=== PATIENT | male | born 1950 | race Caucasian/White ===

== ENCOUNTER 2018-04-13 15:34 | Emergency (ER) | payer MEDICARE, MEDICAID ==
[~2018-04-13] VITALS: Ht 167.6 cm; Wt 131.5 kg
[~2018-04-13 15:34] MED LIST: ACET-77 PO; ACHD5005 PO; BUDE10.2 INH; CITA20TA9 PO; CLON0.1T PO; DILT240C PO; FENO145T2 PO; FLUT16SP22 NSEACH; HYDR-3923 PO; LACT20SO2 PO; LOSA100T8 PO; METF-399 PO; QUET200T PO; ROPI0.5T2 PO; RT-ALBUINH IH; SIMV10TA3 PO; TAMS0.4C2 PO; TRAZ-190 PO
[2018-04-13] MEDS ORDERED: hydrALAZINE (APRESOLINE) 25 MG TAB PO ONE (16:00)
[2018-04-13] MEDS ORDERED: cloNIDine 0.2 MG (CATAPRES) TAB PO ONE (16:00)
[2018-04-13 16:01] LABS: BASOPHILS % (AUTO) 0 % (0-10); EOSINOPHILS # (AUTO) 0.2 10^3/uL (0.0-0.3); EOSINOPHILS % (AUTO) 2 % (0-10); HEMATOCRIT 35 % (40-54); HEMOGLOBIN 11.3 G/DL (13.3-17.7); LYMPHOCYTES # (AUTO) 1.1 X 10^3 (1.0-4.0); LYMPHOCYTES % (AUTO) 11 % (12-44); MEAN CORPUSCULAR HEMOGLOBIN 30 PG (25-34); MEAN CORPUSCULAR HGB CONC 33 G/DL (32-36); MEAN CORPUSCULAR VOLUME 91 FL (80-99); MEAN PLATELET VOLUME 10.1 FL (7.4-10.4); MONOCYTES # (AUTO) 0.9 X 10^3 (0.0-1.0); MONOCYTES % (AUTO) 9 % (0-12); NEUTROPHILS # (AUTO) 7.7 X 10^3 (1.8-7.8); NEUTROPHILS % (AUTO) 77 % (42-75); PLATELET COUNT 296 10^3/uL (130-400); RED BLOOD COUNT 3.83 10^6/uL (4.35-5.85); RED CELL DISTRIBUTION WIDTH 14.5 % (10.0-14.5)
[2018-04-13 16:07] LABS: INR 1.1 (0.8-1.4); PROTHROMBIN TIME PATIENT 13.7 SEC (12.2-14.7)
[2018-04-13 16:15] LABS: ALANINE AMINOTRANSFERASE 13 U/L (0-55); ALBUMIN 4.1 GM/DL (3.2-4.5); ALKALINE PHOSPHATASE 31 U/L (40-136); BILIRUBIN,TOTAL 0.3 MG/DL (0.1-1.0); BUN/CREATININE RATIO 21; CALCIUM 9.5 MG/DL (8.5-10.1); CARBON DIOXIDE 26 MMOL/L (21-32); CHLORIDE 103 MMOL/L (98-107); CREATININE SERUM 1.38 MG/DL (0.60-1.30); GFR ESTIMATED 52; GLUCOSE 126 MG/DL (70-105); MAGNESIUM 2.2 MG/DL (1.8-2.4); POTASSIUM 3.4 MMOL/L (3.6-5.0); SODIUM 139 MMOL/L (135-145); TOTAL PROTEIN 6.5 GM/DL (6.4-8.2)
--- NOTE | 2018-04-13 16:16 | ED Chest Pain ---
General Chief Complaint: Chest Pain Stated Complaint: CP Nursing Triage Note: TO ED PER EMS FROM [facility] BECAME UP SET WITH NURSE WHEN CHEST PAIN STARTED. EMS WAS TO TAKE PATIENT TO HOUSE CONCERN THAT HE WAS HAVING A STEMI ON ADMIT. MONITOR SHOWS A BBB Nursing Sepsis Screen: No Definite Risk Source: patient Exam Limitations: no limitations History of Present Illness Date Seen by Provider: Apr 13, 2018 Time Seen by Provider: 15:33 Initial Comments Here by EMS from intermediate in [place] with report of chest pain. Patient has history of chest pain and hypertension that is not well controlled. Apparently he was having a problem with the nurse at the intermediate and refused his meds. Shortly afterwards he had chest pain and requested to go to the emergency department. Initially he was to go to [facility] and monitor had some findings concerning for acute ST elevation IN. Patient is not very good with his own history and did not know if he had left bundle branch block or not. Patient was asked about transfer to this cardiac center which she agreed to and then they changed routing to ring him to via [facility]. On arrival here, patient reports chest pain and high blood pressure but now states he just was to go back home. Ultimately decided that he would like to get his labs checked at least and then maybe go back home. He is declining evaluation for heart catheter on arrival. Denies nausea, vomiting, diaphoresis or breathing problems. Complains of central chest pressure. Timing/Duration: 1 hour Severity/Quality: moderate, aching Location: central Radiation: no radiation Activities at Onset: none Prior CP/Workup: other (cardiology consultation but unknown other) Modifying Factors: improves with rest ASA po ACCELERATOR OPERATOR: Yes NTG SL ACCELERATOR OPERATOR: Yes Associated Symptoms: No abdominal pain, No back pain, No nausea/vomiting, No shortness of breath, No weakness Allergies and Home Medications Allergies Coded Allergies: No Known Drug Allergies (Unverified , 07/15/17) Home Medications Acetaminophen 500 Mg Tablet, 500 MG PO Q4H PRN for PAIN-MILD Prescribed by: RENETTA PADILLA on 07/24/17 1036 Albuterol Sulfate 1 Puff Puff, 2 PUFF IH Q4H PRN for SHORTNESS OF BREATH, ( Reported) 1 PUFF = 90 MCG Budesonide/Formoterol Fumarate 10.2 Gm Hfa.aer.ad, 2 PUFF INH BID, (Reported) Citalopram Hydrobromide 20 Mg Tablet, 20 MG PO DAILY, (Reported) Clonidine HCl 0.1 Mg Tablet, 0.2 MG PO TID, (Reported) TAKES 2 (0.1MG) TABLETS Diltiazem HCl 240 Mg Cap.er.24h, 240 MG PO DAILY, (Reported) Fenofibrate Nanocrystallized 145 Mg Tablet, 145 MG PO HS, (Reported) Fluticasone Propionate 16 Gm Rangely.susp, 1 SPRAY NSEACH BID PRN for ALLERGIES, ( Reported) Hydralazine HCl 25 Mg Tablet, 25 MG PO TID Prescribed by: RENETTA PADILLA on 07/24/17 1040 Hydrocodone Bit/Acetaminophen 1 Tab Tab, 1 TAB PO Q4H PRN for PAIN-MODERATE Prescribed by: RENETTA PADILLA on 07/24/17 1036 Lactulose 20 Gm/30 Ml Solution, 10 GM PO BID PRN for CONSTIPATION-3RD LINE Prescribed by: RENETTA PADILLA on 07/24/17 1036 Quetiapine Fumarate 200 Mg Tablet, 200 MG PO HS, (Reported) Ropinirole HCl 0.5 Mg Tablet, 0.5 MG PO HS, (Reported) Simvastatin 10 Mg Tablet, 10 MG PO HS, (Reported) Tamsulosin HCl 0.4 Mg Cap.er.24h, 0.4 MG PO HS, (Reported) Trazodone HCl 100 Mg Tablet, 200 MG PO HS, (Reported) TAKES 2 (100MG) TABLETS Patient Home Medication List Home Medication List Reviewed: Yes Review of Systems Review of Systems Constitutional: see HPI; No chills, No fever EENTM: No Symptoms Reported Respiratory: No Symptoms Reported Cardiovascular: See HPI Gastrointestinal: No Symptoms Reported Genitourinary: No Symptoms Reported All Other Systems Reviewed Negative Unless Noted: Yes Past Sefsozt-Zrreff-Mzlbzq Hx Past Med/Social Hx: Reviewed Nursing Past Med/Soc Hx Patient Social History Alcohol Use: Denies Use Recreational Drug Use: No Smoking Status: Former Smoker Recent Foreign Travel: No Contact w/Someone Who Travel: No Recent Infectious Disease Expo: No Recent Hopitalizations: No Immunizations Up To Date Date of Pneumonia Vaccine: Jul 15, 2015 Seasonal Allergies Seasonal Allergies: No Past Medical History Surgeries: No Respiratory: Yes Sleep Apnea, COPD Cardiac: Yes High Cholesterol Neurological: No Genitourinary: Yes Prostate Problems Gastrointestinal: No Musculoskeletal: No Endocrine: Yes (OBESITY, ) HEENT: No Cancer: No Psychosocial: Yes Depression Integumentary: Yes Blood Disorders: No Adverse Reaction/Blood Tranf: No Family Medical History Reviewed Nursing Family Hx No Pertinent Family Hx Physical Exam Vital Signs Vital Signs - First Documented 04/13/18 15:34 Temp 99.0 Pulse 79 Resp 18 B/P (MAP) 193/104 (133) Pulse Ox 99 O2 Delivery Room Air Capillary Refill : Less Than 3 Seconds Height, Weight, BMI Height: 5'6.00" Weight: 290lbs. 0.0oz. [id number]; 49.5 BMI Method:Stated General Appearance: No Apparent Distress, WD/WN, Obese HEENT: PERRL/EOMI, Pharynx Normal Neck: Non Tender, Supple Respiratory: Lungs Clear, Normal Breath Sounds Cardiovascular: Regular Rate, Rhythm, No Murmur Gastrointestinal: Non Tender, Soft Extremity: Normal Range of Motion, Non Tender Neurologic/Psychiatric: Alert, Oriented x3 Skin: Normal Color, Warm/Dry Progress/Results/Core Measures Results/Orders Lab Results Laboratory Tests Test 04/13/18 15:40 Range/Units White Blood Count 10.0 4.3-11.0 10^3/uL Red Blood Count 3.83 L 4.35-5.85 10^6/uL Hemoglobin 11.3 L 13.3-17.7 G/DL Hematocrit 35 L 40-54 % Mean Corpuscular Volume 91 80-99 FL Mean Corpuscular Hemoglobin 30 25-34 PG Mean Corpuscular Hemoglobin Concent 33 32-36 G/DL Red Cell Distribution Width 14.5 10.0-14.5 % Platelet Count 296 130-400 10^3/uL Mean Platelet Volume 10.1 7.4-10.4 FL Neutrophils (%) (Auto) 77 H 42-75 % Lymphocytes (%) (Auto) 11 L 12-44 % Monocytes (%) (Auto) 9 0-12 % Eosinophils (%) (Auto) 2 0-10 % Basophils (%) (Auto) 0 0-10 % Neutrophils # (Auto) 7.7 1.8-7.8 X 10^3 Lymphocytes # (Auto) 1.1 1.0-4.0 X 10^3 Monocytes # (Auto) 0.9 0.0-1.0 X 10^3 Eosinophils # (Auto) 0.2 0.0-0.3 10^3/uL Basophils # (Auto) 0.0 0.0-0.1 10^3/uL Prothrombin Time 13.7 12.2-14.7 SEC INR Comment 1.1 0.8-1.4 Activated Partial Thromboplast Time 25 24-35 SEC Sodium Level 139 135-145 MMOL/L Potassium Level 3.4 L 3.6-5.0 MMOL/L Chloride Level 103 98-107 MMOL/L Carbon Dioxide Level 26 21-32 MMOL/L Anion Gap 10 5-14 MMOL/L Blood Urea Nitrogen 29 H 7-18 MG/DL Creatinine 1.38 H 0.60-1.30 MG/DL Estimat Glomerular Filtration Rate 52 BUN/Creatinine Ratio 21 Glucose Level 126 H 70-105 MG/DL Calcium Level 9.5 8.5-10.1 MG/DL Corrected Calcium 9.4 8.5-10.1 MG/DL Magnesium Level 2.2 1.8-2.4 MG/DL Total Bilirubin 0.3 0.1-1.0 MG/DL Aspartate Amino Transf (AST/SGOT) 19 5-34 U/L Alanine Aminotransferase (ALT/SGPT) 13 0-55 U/L Alkaline Phosphatase 31 L 40-136 U/L Myoglobin 88.3 10.0-92.0 NG/ML Troponin I < 0.30 <0.30 NG/ML B-Type Natriuretic Peptide 88.8 <100.0 PG/ML Total Protein 6.5 6.4-8.2 GM/DL Albumin 4.1 3.2-4.5 GM/DL My Orders Orders - RICHA SOTOMAYOR MD Cbc With Automated Diff (04/13/18 15:55) Magnesium (04/13/18 15:55) Chest 1 View, Ap/Pa Only (04/13/18 15:55) Ekg Tracing (04/13/18 15:55) Cardiac Profile 1 (04/13/18 15:55) Comprehensive Metabolic Panel (04/13/18 15:55) Myoglobin Serum (04/13/18 15:55) Protime With Inr (04/13/18 15:55) Partial Thromboplastin Time (04/13/18 15:55) O2 (04/13/18 15:55) Monitor-Rhythm Ecg Trace Only (04/13/18 15:55) Lipid Panel (04/14/18 06:00) Saline Lock/Iv-Start (04/13/18 15:55) BNP (04/13/18 15:55) Clonidine Tablet (Catapres Tablet) (04/13/18 16:00) Hydralazine Tablet (Apresoline Tablet) (04/13/18 16:00) Medications Given in ED Current Medications Medications Dose Ordered Sig/Keke Route Start Time Stop Time Status Last Admin Dose Admin Clonidine HCl 0.2 mg ONCE ONCE PO 04/13/18 16:00 04/13/18 16:01 DC 04/13/18 16:13 0.2 MG Hydralazine HCl 25 mg ONCE ONCE PO 04/13/18 16:00 04/13/18 16:01 DC 04/13/18 16:13 25 MG Vital Signs/I&O 04/13/18 04/13/18 15:34 16:24 Temp 99.0 Pulse 79 67 Resp 18 18 B/P (MAP) 193/104 (133) 126/81 (96) Pulse Ox 99 98 O2 Delivery Room Air Room Air Blood Pressure Mean: 133 Progress Progress Note : Progress Note Seen and evaluated. I did discuss with the patient about options for care. He is okay with this evaluating labs but states he would just like to go back afterwards and not pursue further heart catheter other treatment. 1720: Labs reviewed and no significant findings. Patient was to go back home so we will arrange transport. He did receive clonidine 0.2 mg by mouth and hydralazine 25 mg by mouth. Blood pressure is currently 184/94. Discharge back to intermediate with return precautions. Patient verbalize understanding instructions and agreement with plan. EMS to transport as he is unable to be transported in a wheelchair van due to obesity and inability to sit up. Initial ECG Impression Date: Apr 13, 2018 Initial ECG Impression Time: 15:38 Initial ECG Rate: 77 Initial ECG Rhythm: Normal Sinus Comment Sinus rhythm with left bundle branch block. No evidence of ST elevation IN. No previous available for comparison although does have cardiac rhythm strips that shows similar rhythm. Interpreted by me. Diagnostic Imaging Diagonstic Imaging: Xray Plain Films/CT/US/NM/MRI: chest [facility] [place], [place] NAME: KATIE PETERSEN [facility] REC#: [id number] PT STATUS: REG ER : 1950 PHYSICIAN: RICHA SOTOMAYOR MD ADMIT DATE: 04/13/18/ER Draft Date of Exam:04/13/18 CHEST 1 VIEW, AP/PA ONLY EXAMINATION: Portable erect AP chest at 04:19 p.m. INDICATION: Chest pain. FINDINGS: The heart is enlarged, but both the heart and the central pulmonary vascularity do seem less prominent than noted on the prior exam of 07/17/2017. The lungs are generally clear. There is no evidence for failure, pneumonia, or for a pleural effusion. The mediastinum is not widened. The osseous structures are intact. IMPRESSION: There is cardiomegaly, but there is no evidence for an acute cardiopulmonary abnormality. Dictated on workstation # [id number] Dict: 04/13/18 1630 Trans: 04/13/18 1636 [id number] Interpreted by: ENRRIQUE MORENO MD Electronically signed by: Departure Impression Primary Impression: Chest pain Qualified Codes: R07.9 - Chest pain, unspecified Additional Impression: Hypertension, uncontrolled Disposition: HOME, SELF-CARE Condition: Stable Departure-Patient Inst. Decision time for Depature: 17:23 Referrals: NO,LOCAL PHYSICIAN (PCP/Family) Primary Care Physician Patient Instructions: Chest Pain (DC), High Blood Pressure (DC) Add. Discharge Instructions: All discharge instructions reviewed with patient and/or family. Voiced understanding. Is important that you take your medications as directed. Follow-up with your DrShanna in a few days for recheck. Return for other concerns as needed. RICHA SOTOMAYOR MD Apr 13, 2018 16:16
[2018-04-13 16:22] LABS: MYOGLOBIN SERUM 88.3 NG/ML (10.0-92.0)
[2018-04-13 16:24] VITALS: BP 126/81
--- NOTE | 2018-04-13 16:37 | Diagnostic Imaging Report ---
EXAMINATION: Portable erect AP chest at 04:19 p.m. INDICATION: Chest pain. FINDINGS: The heart is enlarged, but both the heart and the central pulmonary vascularity do seem less prominent than noted on the prior exam of 07/17/2017. The lungs are generally clear. There is no evidence for failure, pneumonia, or for a pleural effusion. The mediastinum is not widened. The osseous structures are intact. IMPRESSION: There is cardiomegaly, but there is no evidence for an acute cardiopulmonary abnormality. Dictated by: Dictated on workstation # [id number]
[2018-04-13 17:40] VITALS: BP 189/94
== END 2018-04-13 17:39 | disposition home or self-care (01) ==
LOC: EDUNIT# 15:34 → ER 15:34
DX: R07.89 Other chest pain (principal); I10 Essential (primary) hypertension; G47.30 Sleep apnea, unspecified; J44.9 Chronic obstructive pulmonary disease, unspecified; E78.00 Pure hypercholesterolemia, unspecified; E66.9 Obesity, unspecified; F32.9 Major depressive disorder, single episode, unspecified; Z79.51 Long term (current) use of inhaled steroids; Z68.42 Body mass index [BMI] 45.0-49.9, adult; Z87.891 Personal history of nicotine dependence
CPT/HCPCS: 36415; 71045; 80053; 83735; 83874; 83880; 84484; 85025; 85610; 85730; 93005; 93041

== ENCOUNTER → 2019-05-24 | Outpatient (CLI) | payer MEDICARE, MEDICAID ==
[~2019-05-24] MED LIST changes: +LOSA100T57 PO; -LOSA100T8 PO
--- NOTE | 2019-05-24 14:52 | NUR ---
Patient received Definity per policy. Patient tolerated the procedure with no complaints.
== END ==
LOC: CARD 10:50
PROVIDERS: ATTEND Nurse Practitioner Adult Health
DX: I50.9 Heart failure, unspecified (principal); I51.7 Cardiomegaly; R60.0 Localized edema